=== PATIENT | female | born 1980 | race Caucasian/White ===

== ENCOUNTER 2017-11-25 16:44 | Emergency (ER) | payer OTHER, SELFPAY ==
[2017-11-25 18:01] VITALS: BP 172/76; PULSE 86; RESP 18; TEMP 36.6; O2SAT 99; BMI 27.4
--- NOTE | 2017-11-25 18:02 | XR_ITS ---
XR shoulder RT min 2V Ordering Physician: Zack Becker Patient Age: 37 years: Female HISTORY: ITS.REASON: RAN INTO Nitro TECHNIQUE: AP internal and axial rotation view along with Y view COMPARISON :None available FINDINGS Dense focall calcification superior to the greater tuberosity & humeral head reflecting calcific tendinitis On the external rotation view overall these calcifications been interval 14 mm transverse x 5 mm height. . The glenohumeral joint is intact. The humeral head and neck otherwise intact bones well mineralized. AC joint satisfactory. Right lung apex clear. Scapula unremarkable. IMPRESSION: 1. Findings c/w CALCIFIC TENDINITIS: dense calcification overlying greater tuberosity & base of humeral head-reflecting calcific tendinitis otherwise right shoulder intact. Unremarkable.
[2017-11-25 18:03] LABS: UTC Pregnancy Test, Urine Negative (Negative)
--- NOTE | 2017-11-25 18:14 | HMH.EDUTC ---
[facility] [place] Clinical Impression: Tendinitis Disposition: Home, Self-Care Condition on Discharge: Good Instructions: Tendonitis (Alternative Therapy), DI for Tendinitis, DI for Shoulder Tendinopathy, DI for Calcific Tendonitis of the Shoulder Additional Instructions: Wear sling removed and do range of motion exercises at least every hour Follow-up with Dr. Barrow or Avery as soon as possible Tylenol or ibuprofen as needed for pain Symptoms worsen or do not improve return or be seen in the ER Prescriptions: predniSONE [Prednisone 20mg Tab] 20 mg PO BID 5 Days tab Time of Disposition: 18:40 Medical Decision Making Vital Signs: 11/25/17 18:01 Temperature 97.9 F Temperature Source Temporal Artery Scan Pulse Rate [Brachial] 86 Respiratory Rate 18 Blood Pressure [Right Arm] 172/76 Blood Pressure Mean [Right Arm] 108 Blood Pressure Source [Right Arm] Automatic Cuff Blood Pressure Position [Right Arm] Sitting 02 Sat by Pulse Oximetry 99 Oxygen Delivery Method Room Air - Lab Data Lab Results 11/25/17 18:01: Tst Clinic Negative - [facility] Inquiry Pt receiving controlled substance: No [facility] [place] HPI - General Chief complaint: Urgent Treatment Center Stated complaint: WC [id number] @1430 Injured right shoulder Time Seen by Provider: 11/25/17 18:00 Mode of Arrival: Ambulatory Source of Information: Patient Limitations: No Limitations Description of Symptoms (Recalled from Triage Doc. by RN): RAN INTO THE WALL SATURDAY AND INJURIED HER RT SHOULDER HEENT Symptoms (Recalled from RN notes): No Resp Symptoms (Recalled from RN notes): No Skin Symptoms (Recalled from RN notes): No MS Symptoms (Recalled from RN notes): Yes Functional Status (Recalled from RN notes): NA - History of Present Illness Provider Complaint: 37-year-old female presents for right shoulder pain. Patient states 2 days ago she walked into a corner and now is unable to raise arm above head or move arm very far. - Related Data Home Medications Medication Instructions Recorded Confirmed Norgestimate-Ethinyl Estradiol 1 tab PO DAILY 11/25/17 11/25/17 [Tri-Sprintec Tablet] Previous Rx's Medication Instructions Recorded predniSONE [Prednisone 20mg 20 mg PO BID 5 Days tab 11/25/17 Tab] Allergies Allergy/AdvReac Type Severity Reaction Status Date / Time No Known Allergies Allergy Verified 11/25/17 18:06 - Worker's Comp Is this a Worker's Comp case?: No [facility] History - *Social History Alcohol Intake: never - Psychiatric History Expresses thoughts of harming self/others: None Suicide Plan Description: No Plan ROS Obtained: Yes All systems reviewed & no additional complaints - Constitutional Constitutional: Reports system reviewed and no additional complaints, except as docu - Eyes Eyes: Reports system reviewed and no additional complaints, except as docu - ENT Ears, Nose, Mouth, and Throat: Reports system reviewed and no additional complaints, except as docu - Cardiovascular Cardiovascular: Reports system reviewed and no additional complaints, except as docu - Respiratory Respiratory: Yes system reviewed and no additional complaints, except as docu - Gastrointestinal Gastrointestingal: Reports: system reviewed and no additional complaints, except as docu - Musculoskeletal Musculoskeletal: Reports system reviewed and no additional complaints, except as docu, Reports joint pain, Reports joint stiffness, Reports limited range of motion - Integumentary/Breasts Skin/Breast: Reports system reviewed and no additional complaints, except as docu - Neurologic Neurologic: Reports system reviewed and no additional complaints, except as docu - Endocrine Endocrine: Reports system reviewed and no additional complaints, except as docu - Hematologic/Lymphatic Henatologic/Lymphatic: Reports system reviewed and no additional complaints, except as docu - Allergic/Immunologic Allergic/Imm
== END 2017-11-25 18:47 | disposition home or self-care (01) ==
PROVIDERS: Emergency Provider Nurse Practitioner Family
DX: M75.91 Shoulder lesion, unspecified, right shoulder (principal)
CPT/HCPCS: 73030; 81025; 99201; 99202